=== PATIENT | male | born 1965 | race African-American/Black ===

== ENCOUNTER 2024-11-07 09:03 | Emergency (ER) | payer OTHER ==
[~2024-11-07] VITALS: Ht 180.3 cm; Wt 100.4 kg
[2024-11-07 09:06] VITALS: PULSE 77; RESP 20; TEMP 97.3
[2024-11-07] MEDS: LACTATED RINGER'S 1,000 ML INJ ONE (09:56)
[2024-11-07] MEDS: ONDANSETRON HCL INJ 2MG/ML 2ML 2 MG/ML VIAL IV ONE (09:56)
[2024-11-07] MEDS: FAMOTIDINE 20 MG/2 ML VIAL IV ONE (09:56)
[2024-11-07] MEDS: KETOROLAC TROMETHAMINE 30 MG/ML VIAL IV ONE (09:57)
[2024-11-07] MEDS ORDERED: DICYCLOMINE HCL20 MG PO (10:32)
[2024-11-07] MEDS ORDERED: ONDANSETRON ODT4 MG PO (10:32)
[2024-11-07] MEDS ORDERED: MAALOX MAXIMUM355 ML PO (10:32)
[2024-11-07 10:57] VITALS: BP 130/86; PULSE 67; RESP 20; TEMP 97.6; O2SAT 99
== END 2024-11-07 10:55 | disposition home or self-care (01) ==
LOC: FSED 09:14 → EDBD 09:14 → FSED 10:55
DX: K52.9 Noninfective gastroenteritis and colitis, unspecified (principal); R10.9 Unspecified abdominal pain; R11.0 Nausea; R53.81 Other malaise
CPT/HCPCS: 80048; 80053; 80076; 85025; 87400; 99283; J1885; J2405; J7121